=== PATIENT | female | born 1990 | race Caucasian/White ===

== ENCOUNTER 2017-01-17 18:30 | Emergency (ER) | payer OTHER ==
[~2017-01-17] VITALS: Ht 160 cm; Wt 54.5 kg
[2017-01-17 18:33] VITALS: BP 100/69
[2017-01-17] MEDS ORDERED: IBUPROFEN 200 MG TABLET PO ONE (19:00)
== END 2017-01-17 21:26 | disposition left against medical advice (07) ==
LOC: ED 21:20
DX: R07.81 Pleurodynia (principal)
CPT/HCPCS: 99284